=== PATIENT | female | born 1950 | race Caucasian/White ===

== ENCOUNTER → 2017-04-05 | Outpatient (CLI) | payer SELFPAY ==
[~2017-04-05] MED LIST: SYNTHROID0.112 MG PO
== END | disposition home or self-care (01) ==
LOC: RD 10:30
DX: R13.10 Dysphagia, unspecified (principal)
CPT/HCPCS: A9698

== ENCOUNTER → 2017-09-20 | Outpatient (CLI) | payer OTHER | END | disposition home or self-care (01) | LOC: CT 09:28 | PROC: BW241ZZ Computerized Tomography (CT Scan) of Chest and Abdomen using Low Osmolar Contrast (ICD-10-PCS; principal; 2017-09-20) | DX: R91.1 Solitary pulmonary nodule (principal) | CPT/HCPCS: Q9967 ==